=== PATIENT | female | born 1995 | race Caucasian/White ===

== ENCOUNTER → 2020-08-20 11:10 | Outpatient (CLI) | payer OTHER, SELFPAY ==
[2020-08-20 14:31] LABS: Prolactin 4.2 ng/mL; T4 Free Direct 0.84 ng/dL (0.76-1.46); Thyroid Stim Hormone (TSH) 1.59 uIU/mL (0.358-3.74)
== END ==
PROVIDERS: Visit Provider Obstetrics & Gynecology
DX: N91.2 Amenorrhea, unspecified (principal)
CPT/HCPCS: 36415; 84146; 84439; 84443

== ENCOUNTER 2020-12-01 00:09 | Emergency (ER) | payer OTHER, SELFPAY ==
[2020-12-01 00:09] VITALS: BP 150/94; PULSE 109; RESP 18; TEMP 36.4; O2SAT 98; BMI 20.5
--- NOTE | 2020-12-01 00:17 | RAD_ITS ---
STUDY: X-RAY - SOFT TISSUE NECK REASON FOR EXAM: Female, 24 years old. C/O and quot; EARS WERE CLOGGED AND THROAT GOT TIGHT and quot; TECHNIQUE: 2 view(s) of the neck were obtained. COMPARISON: None. FINDINGS: Normal visualized nasopharynx, oropharynx, hypopharynx. Normal epiglottis. Normal visualized subglottic tracheal air column. Normal prevertebral soft tissue structures. Normal visualized osseous structures. The soft tissue structures are unremarkable. RAD/Neck for Soft Tissue IMPRESSION: Normal x-ray soft tissue neck. Electronically Signed: Alphonso Zimmer MD at 0:55 EST Tel , Service support ,
--- NOTE | 2020-12-01 00:24 | ED.VIS.GEN ---
History of Present Illness Chief Complaint: Allergic Reaction Informant: Patient Onset: Today Context: Gradual Onset Narrative: Patient is a 24-year-old female with history of anxiety and panic attacks presenting with concern for allergic reaction. Patient states when she woke up tonight around 9 PM she felt that her ears were clogged. She denies any ringing or tinnitus. She went to work and then started to feel like her throat was getting tight and she was having hard time swallowing. She is concerned she might have an allergic reaction so she came to the emergency room. She states she does have history of panic attacks but she was not particularly stressed about anything so she did not think that is what it was. She not take anything prior to arrival. She denies any new medications or foods. She denies any history of anaphylaxis or allergic reactions. She denies any shortness of breath or difficulty breathing. She states her throat now just feels numb but her symptoms have slightly improved. She denies any GI symptoms. No other complaints at this time. Past Medical History - Allergies and Home Meds Allergies/Adverse Reactions: Allergies No Known Allergies Allergy (Verified 12/01/20 00:14) Past Medical History: - - Anxiety Surgical History: noncontributory Smoking Status: Current some day smoker Review of Systems General: Denies: Chills, Fever, Sweats Eyes: Denies: Visual changes - bilaterally, Diplopia ENT: Reports: - - Ear fullness bilaterally, - - Sensation of throat swelling/tightness. Denies: Rhinorrhea, Sore throat Cardiovascular: Denies: Chest pain, Palpitations Respiratory: Denies: Dyspnea, Cough, Sputum, Dyspnea on exertion Gastrointestinal: Denies: Abdominal pain, Nausea, Vomiting, Diarrhea, Melena, Hematochezia Genitourinary: Denies: Dysuria, Hematuria, Frequency Musculoskeletal: Denies: Back pain, Extremity Pain Skin: Denies: Rash, Wounds Neurological: Denies: Headache, Weakness, Numbness Psych: Reports: Anxiety Physical Exam Vital Signs/Narrative: Vital Signs Temp Pulse Resp BP Pulse Ox 12/01/20 00:09 97.5 F L 109 H 18 150/94 H 98 Inital Vital Signs reviewed: Yes General: Well nourished, Well developed, No Acute Distress Head: Normocephalic, Atraumatic Eyes: Perrl, EOMI ENT: Moist mucous membranes, No rhinorrhea, TM's clear, - - No oral pharyngeal edema noted. Normal-appearing oropharynx. Negative for: Nasal congestion Neck: Supple, Nontender Cardiovascular: Regular rate, Regular rhythm, No murmurs Respiratory: No distress, CTA bilaterally, Chest nontender Abdomen: Soft, Nontender, Nondistended, Normal bowel sounds. Negative for: Guarding Back: Nontender, Normal Inspection Extremities: Nontender, No edema Skin: Normal color, No rash Neurological: Alert, Oriented x3, Cranial nerves II-XII grossly intact, Normal Strength, Normal Sensation Psychological: Normal affect, Normal Mood Diagnostic/Tx/Re-eval Clinical Impression(s) from Imaging Studies Soft Tissue Neck X-Ray 12/01/20 00:17 IMPRESSION: Normal x-ray soft tissue neck. Electronically Signed: Alphonso Zimmer MD at 0:55 EST Tel , Service support , - Medical Decision Making Patient is evaluated for sensation of her throat tightening and concerned she is having allergic reaction. Physical exam is not consistent with an allergic reaction. Patient has a normal oropharynx no signs of edema. Soft tissue x-ray obtained does not show any abnormal soft tissue swelling or signs of epiglottitis. Patient is breathing comfortably. Patient does states she is had some nasal congestion when asked states she is also had what feels like postnasal drip. I suspect the postnasal drip is giving her the sensation in her throat. Patient be started on antihistamine for this. She is cleared to return to work. Patient is counseled on signs and symptoms requiring return to the emergency room. Patient verbalizes agreement and understand this plan. Patient discharged home in stable and improved condition. ED Disposition - Plan for ED Patient: Disposition: Home or Assisted Living Diagnosis: Post-nasal drip Instructions: ED Earache Without Infection (Adult) Prescriptions: Cetirizine HCl [Zyrtec] 10 mg PO DAILY #14 tab Prescription Printed Additional Instructions: Your throat appears normal on exam. On x-ray there is not appear to be any acute swelling or other problems. It is safe for you to go home. I suspect your symptoms are from drainage of your sinuses into your throat, called postnasal drip. You can use [id number] decongestions and or cough drops for the discomfort.
[2020-12-01] MEDS: Loratadine 10 MG Tablet PO (01:27)
== END 2020-12-01 01:30 | disposition home or self-care (01) ==
PROVIDERS: Emergency Provider Emergency Medicine
DX: R09.82 Postnasal drip (principal); F17.200 Nicotine dependence, unspecified, uncomplicated
CPT/HCPCS: 70360; 99283